=== PATIENT | female | born 1990 | race Caucasian/White ===

== ENCOUNTER 2021-08-09 14:13 | Emergency (ER) | payer OTHER, MEDICAID, SELFPAY ==
[2021-08-09 15:34] VITALS: BP 107/68; PULSE 78; RESP 14; TEMP 36.5; O2SAT 98; BMI 21.4
--- NOTE | 2021-08-09 15:47 | W.ED.DENTAL ---
HPI - Dental/Oral General: Chief complaint: Dental/Oral Stated complaint: broke tooth - would like antibiotics/pain control Time Seen by Provider: 08/09/21 15:39 Source: patient Mode of arrival: ambulatory Limitations: no limitations History of Present Illness: HPI Narrative: Patient is a 31-year-old female who presents to ED today with a complaint of right upper dental pain. Patient tells me she has had issues with that tooth previously but states she was eating a peanut butter cracker when the tooth broke off and she has been in significant discomfort since. She states she has been treating with tylenol, ibuprofen, aspirin, orajel and even got some type of packing material at [facility] all without much relief. Patient scheduled a dentist appointment for Friday morning. MD Complaint: tooth pain Teeth map: 1. broken tooth Onset (ago): day(s) Duration: constant Severity: severe Relieving factors: nothing Context: history of dental caries Associated symptoms: Reports no associated symptoms; Denies ear or mastoid pain, fever(s) or odynophagia Treatment prior to arrival: topical analgesic and oral analgesic Review of Systems Const: Denies: fever(s), chills or body aches Eyes: Denies: change in vision ENMT: Reports: dental pain; Denies: throat pain, odynophagia, mouth pain, swelling of lips/tongue, oral sores, bleeding gums, ear or mastoid pain, ear discharge or nasal discharge Card: Denies: chest pain Resp: Denies: dyspnea GI: Denies: nausea or vomiting Musc: Denies: neck pain Skin/Breast: Denies: rash Neuro: Denies: headache(s) Physical Exam Const: COMMON NORMALS: no acute distress, average body habitus, patient oriented x3, no limitations, healthy appearing, alert and well nourished GENERAL APPEARANCE: cooperative ORIENTATION/CONSCIOUSNESS: Yes awake, Yes oriented to person, Yes oriented to place and Yes oriented to time HENMT: COMMON NORMALS: normocephalic and atraumatic HEAD & SCALP: normal to inspection, normocephalic and atraumatic FACE & SINUS: normal facial exam TEETH & GINGIVA IMAGES: 1. broken, decayed tooth with some type of packing material placed by patient Neck/C-Spine: COMMON NORMALS: full ROM and no lymphadenopathy GENERAL: No anterior neck swelling and No submandibular swelling Resp: COMMON NORMALS: normal respiratory effort Cardio: COMMON NORMALS: regular rate and regular rhythm RATE: regular rate RHYTHM: regular rhythm Neuro: JOSEPHINE COMA SCALE: document GCS findings Josephine coma scale eye opening: Spontaneous [place] coma scale verbal response: Orientated Josephine coma scale motor response: Obey commands Josephine coma scale total score: 15 COMMON NORMALS: patient oriented x3 and CN's II-XII intact bilaterally SENSORIUM/ORIENTATION: Yes alert, Yes oriented to person, Yes oriented to place and Yes oriented to time Skin: COMMON NORMALS: no rashes or lesions noted GENERAL SKIN EXAM: no rashes or lesions noted TRAUMA: no lacerations or abrasions Course Vital Signs: Vital signs: Vital Signs Temperature 97.7 F 08/09/21 15:34 Pulse Rate 78 08/09/21 15:34 Respiratory Rate 14 08/09/21 15:34 Blood Pressure 107/68 08/09/21 15:34 Pulse Oximetry 98 08/09/21 15:34 Discharge Plan Discharge Patient Disposition: Home Clinical Impression: Dental caries, Toothache Fracture of tooth Qualifiers: Encounter type: initial encounter Fracture type: closed Qualified Code(s): S02.5XXA - Fracture of tooth (traumatic), initial encounter for closed fracture Condition: Stable Prescriptions: New clindamycin HCl 300 mg capsule 300 mg PO Q6H 7 Days Qty: 28 RF: 0 tramadol 50 mg tablet 50 mg PO Q6H PRN (Reason: pain) Qty: 14 RF: 0 Discharge Orders: Discharge ED (Routine); Ordered 08/09/21 Ordered By: Barbara Castro Patient Instructions: Dental Caries (Cavities), Toothache (ED) Coding Level of Care Code ED Relations Specialist for [employer]lallig Fwd Exam Detailed
== END 2021-08-09 16:37 | disposition home or self-care (01) ==
PROVIDERS: Emergency Provider Physician Assistant
DX: S02.5XXA Fracture of tooth (traumatic), initial encounter for closed fracture (principal)
CPT/HCPCS: 99281

== ENCOUNTER 2021-08-25 13:23 | Emergency (ER) | payer OTHER, MEDICAID, SELFPAY ==
[2021-08-25 13:41] VITALS: BP 142/78; PULSE 101; RESP 15; TEMP 36.9; O2SAT 98; BMI 22.4
--- NOTE | 2021-08-25 14:01 | PC.NURSE ---
Pt assisted into gown. Room cleared. Family at bedside.
--- NOTE | 2021-08-25 14:09 | W.ED.ANXIETY ---
HPI - Anxiety General: Chief Complaint: Anxiety Stated Complaint: Nerves, meds not working Time Seen by Provider: 08/25/21 13:42 History of Present Illness: HPI narrative: Patient is a 31-year-old female comes to the ED with anxiety. Patient says she currently is feeling very stressed and anxious right now. She says she has a lot of things on her plate. She is currently patient says she was on buspirone and escitalopram but ran out of medications and her next appointment with her doctor at [facility] is on October 01. Provider said she was not going to refill her prescriptions until she saw patient in clinic and stated that she is probably going to switch some of her medications at that time since they have not been working. Since being off medication her symptoms of anxiety have increased. She denies any SI, HI, auditory or visual hallucinations. Associated symptoms: Deny chest pain, chills, fever(s), headache(s), nausea, palpitations or vomiting Review of Systems Const: Denies: fever(s), chills or fatigue Eyes: Denies: change in vision or eye discomfort ENMT: Denies: throat pain, odynophagia, nasal discharge or nasal congestion Card: Denies: chest pain, palpitations, edema, swelling of feet/ankles, dyspnea on exertion or orthopnea Resp: Denies: dyspnea, productive cough or non-productive cough GI: Denies: abdominal pain, nausea, vomiting, diarrhea, constipation or hematochezia : Denies: flank pain, dysuria or hematuria Musc: Denies: neck pain, back pain or extremity swelling Skin/Breast: Denies: rash or new lesions Neuro: Denies: headache(s), numbness in extremities or weakness in extremities Psych: Reports: anxiety; Denies: visual hallucinations, auditory hallucinations, suicidal ideation or homicidal ideation Physical Exam Const: COMMON NORMALS: patient oriented x3 and alert GENERAL APPEARANCE: anxious OTHER: Patient was occurring during history and physical exam. HENMT: COMMON NORMALS: normocephalic HEAD & SCALP: normocephalic MOUTH: Normal oral and palatal mucosa present THROAT: posterior oropharynx normal and uvula midline Neck/C-Spine: COMMON NORMALS: supple GENERAL: Yes normal visual inspection Resp: COMMON NORMALS: normal respiratory effort, No retractions, No use of accessory muscles and clear to auscultation bilaterally AUSCULTATION: clear to auscultation bilaterally Cardio: COMMON NORMALS: regular rate, regular rhythm, S1 normal heart sound present, S2 normal heart sound present, No gallops present (Cardio), No clicks present (Cardio), No murmurs present (Cardio) and Peripheral pulses 2+ throughout RATE: regular rate RHYTHM: regular rhythm HEART SOUNDS: S1 normal heart sound present and S2 normal heart sound present PERIPHERAL PULSES: Peripheral pulses 2+ throughout GI: COMMON NORMALS: Normal to inspection, nondistended, normoactive bowel sounds present, Soft to palpation, non-tender and no masses PALPATION: Yes Soft to palpation : COMMON NORMALS: Yes no CVA tenderness BLADDER/KIDNEY EXAM: Yes no CVA tenderness Back/Pelvis: COMMON NORMALS: no CVA tenderness Extremity: COMMON NORMALS: normal to inspection Neuro: COMMON NORMALS: patient oriented x3 and moves all extremities SENSORIUM/ORIENTATION: Yes alert Psych: COMMON NORMALS: mental status grossly normal, Normal thought process present, cooperative, speech normal, activity/motor behavior normal, denies hallucinations, denies homicidal ideation and denies suicidal ideation ATTITUDE: Yes calm ACTIVITY/MOTOR BEHAVIOR: Yes appropriate eye contact SPEECH: Yes normal speech MOOD & AFFECT: Yes anxious and Yes tearful THOUGHT PROCESS: Normal thought process present THOUGHT CONTENT: No Suicidality present, No Homicidality present and No Hallucination(s) present ATTENTION/CONCENTRATION: Yes attention grossly intact and Yes concentration grossly intact MEMORY/COGNITION: Yes memory grossly intact and Yes cognition grossly intact Skin: GENERAL SKIN EXAM: dry skin Course Consultations: Consultation #1: I contacted Dr. Lin and told about patient case. He was up for admitting patient to stress unit to evaluate her medications. I told him about patient refused to be admitted and that he is can have to do a video conference with patient to discuss further care plan. Time: 16:03 Consultation #2: Dr. Lin was good with discharge of pt after he performed video conference with her. He told me to discharge patient home with the following prescriptions?propranol 20 mg TID prn and Prozac 20mg daily. Time: 17:06 Vital Signs: Vital signs: Vital Signs Temperature 98.0 F 08/25/21 17:40 Pulse Rate 73 08/25/21 17:40 Respiratory Rate 16 08/25/21 17:40 Blood Pressure 116/74 08/25/21 17:40 Pulse Oximetry 100 08/25/21 17:40 MDM - Anxiety MDM Narrative: Medical decision making narrative: Patient is a 31-year-old female comes to the ED with acute anxiety. Patient has run out of her medications and does not have an appointment with her behavioral health doctor until October 01. When going through triage patient screened positive for SI. Talking with patient she denies any SI, HI, auditory or visual hallucinations. Patient does not want to be brought into the stress unit and says she feels safe and has having no thoughts of suicide. I contacted Dr. Lin and told outpatient case. He agreed to do a video conference visit with patient and let me know his plan of care for patient. After Dr. Lin talked with patient on video conference he told me he is okay with patient being discharged home. He told me to send patient with a prescription for propranolol 20 mg 3 times daily as needed for anxiety and Prozac 20 mg daily. Patient diagnosed acute anxiety and discharged home with prescriptions for propranolol and Prozac medications. I placed an order with case management for patient to be scheduled with [facility] [place] for further follow-up and medication management. Patient understood and agreed with plan. Discharge Plan Discharge Patient Disposition: Home Clinical Impression: Acute anxiety Condition: Stable Prescriptions: New propranolol 20 mg tablet 20 mg PO TID PRN (Reason: anxiety) Qty: 90 RF: 0 Prozac 20 mg capsule 20 mg PO DAILY Qty: 30 RF: 0 No Action No Known Home Medications RF: 0 Discharge Orders: Discharge ED (Routine); Ordered 08/25/21 Ordered By: Paco Simpson Discharge Diet: Regular Discharge Activity: Resume usual activity Patient Instructions: Anxiety (ED) Activity Restrictions/Additional Instructions: Follow-up with medical provider as directed. Case management will contact you in the next several days to set up an appointment with behavioral health. Take medications as prescribed. Return to the ER or your medical provider if condition worsens. Please read and understand discharge instructions. Thank you for choosing [facility] for your healthcare needs today. Please realize this is an emergency room and that we are providing you with a medical screening exam and this may not be complete and all inclusive of all the testing and or work up that you may need to determine your ailment or severity of your illness. It is very important that you follow up as instructed or that you return to the Emergency Department should you have concerns or if your condition changes or worsens in any way. Coding Level of Care Code ED Ict Project Manager for Chg Fwd Exam Comprehensive
[2021-08-25] MEDS: LORazepam 1 mg Tablet PO (14:32)
[2021-08-25 17:40] VITALS: BP 116/74; PULSE 73; RESP 16; TEMP 36.7; O2SAT 100
--- NOTE | 2021-08-27 12:39 | DCPLANNER ---
-service manager had message to speak with patient about services at [facility]. service manager called phone number [phone], unable to speak with patient at this time a voicemail was left for patient to return employment evaluator/case manager phone call.
== END 2021-08-25 17:42 | disposition home or self-care (01) ==
PROVIDERS: Emergency Provider Physician Assistant
DX: F41.9 Anxiety disorder, unspecified (principal)
CPT/HCPCS: 99283

== ENCOUNTER 2021-10-19 16:06 | Emergency (ER) | payer OTHER, MEDICAID, SELFPAY ==
[2021-10-19 16:22] VITALS: BP 109/60; PULSE 83; RESP 16; TEMP 36.8; O2SAT 97; BMI 20.2
--- NOTE | 2021-10-19 16:42 | XRR_ITS ---
PROCEDURE INFORMATION: Exam: XR Right Shoulder Exam date and time: 10/19/2021 4:42 PM Age: 31 years old Clinical indication: Pain; Shoulder; Right; Additional info: Right shoulder pain into neck, no injury, no trauma TECHNIQUE: Imaging protocol: XR Right shoulder. Views: 2 or more views. COMPARISON: No relevant prior studies available. FINDINGS: Bones/joints: There is no acute fracture or dislocation. The acromioclavicular joint alignment is appropriate. The subacromial joint space is well-preserved. The glenohumeral joint is unremarkable. No calcific tendinopathy. The visualized ribs are intact. Lungs: Mild ground-glass opacity is noted in the right lung base that may reflect mild pneumonitis versus atelectasis. Soft tissues: Normal. XR/XR shoulder RT min 2V* [id number] IMPRESSION: 1. No acute bony abnormality. 2. Mild ground-glass opacity in the right lung base may reflect mild pneumonitis versus atelectasis.
[2021-10-19 16:44] VITALS: BP 103/67; PULSE 77; RESP 16; O2SAT 96
--- NOTE | 2021-10-19 16:46 | ED_ITS ---
HPI - Extremity Problem General: Chief complaint: Extremity Problem,Nontraumatic Stated complaint: Neck pain not feeling Time Seen by Provider: 10/19/21 16:43 PFSH ED PFSH: Medical History (Updated 09/02/21 @ 00:01 by ) Psychiatric care Course Vital Signs: Vital signs: Vital Signs Temperature 98.2 F 10/19/21 16:22 Pulse Rate 83 10/19/21 16:22 Respiratory Rate 16 10/19/21 16:22 Blood Pressure 109/60 10/19/21 16:22 Pulse Oximetry 97 10/19/21 16:22 Discharge Plan Discharge Prescriptions: No Action No Known Home Medications RF: 0 propranolol 20 mg tablet 20 mg PO TID PRN (Reason: anxiety) Qty: 90 RF: 0 Prozac 20 mg capsule 20 mg PO DAILY Qty: 30 RF: 0 Coding Level of Care Code ED Associate Professor Of Music for Daniel Jimenez
--- NOTE | 2021-10-19 17:13 | W.ED.EXTPRO ---
HPI - Extremity Problem General: Chief complaint: Extremity Problem,Nontraumatic Stated complaint: Neck pain not feeling Time Seen by Provider: 10/19/21 16:43 Source: patient Mode of arrival: ambulatory Limitations: no limitations History of Present Illness: HPI Narrative: Patient is a 31-year-old female presents to ED today with a complaint of right-sided neck pain with radiation into the back of her right shoulder. She denies any acute injury or trauma. She states pain seems to be worse with movement of her neck and movement of her right upper extremity. She has noticed some intermittent burning to the right arm. She has not noticed any weakness or decreased tapping machine operator automatic strength. She is not having any midline cervical tenderness. MD Complaint: extremity pain Onset (ago): day(s) Pain Consistency: intermittent Location: right, upper extremity and other (neck) Quality: burning Radiation: distal Relieving factors: movement Exacerbating factors: nothing Associated symptoms: Reports no associated symptoms; Deny chest pain, fever(s) or rash Review of Systems Const: Denies: fever(s), chills, body aches, fatigue or malaise Eyes: Denies: change in vision ENMT: Denies: throat pain or odynophagia Card: Denies: chest pain, edema, swelling of feet/ankles, lightheadedness, syncope, pre-syncope, dyspnea on exertion or orthopnea Resp: Denies: dyspnea GI: Denies: abdominal pain Musc: Reports: neck pain and joint pain; Denies: back pain, extremity swelling, joint swelling, joint redness, joint warmth or limited range of motion Skin/Breast: Denies: rash Neuro: Reports: sensory changes (R UE); Denies: headache(s), numbness in extremities, weakness in extremities or difficulty walking [facility] ED PFSH: Medical History (Updated 10/19/21 @ 17:15 by VADIM Stokes) Psychiatric care Physical Exam Const: COMMON NORMALS: no acute distress, average body habitus, patient oriented x3, no limitations, healthy appearing, alert and well nourished HENMT: COMMON NORMALS: normocephalic and atraumatic HEAD & SCALP: normal to inspection, normocephalic and atraumatic Neck/C-Spine: COMMON NORMALS: full ROM, no lymphadenopathy and no meningeal signs CERVICAL SPINE: Yes cervical ROM normal, No Cervical spine tenderness, No step off deformity and Yes Paracervical muscle tenderness right Chest: COMMONS NORMALS: normal inspection of the chest and normal palpation of entire chest wall Resp: COMMON NORMALS: normal respiratory effort and clear to auscultation bilaterally AUSCULTATION: clear to auscultation bilaterally Back/Pelvis: COMMON NORMALS: thoracic and lumbar spine normal to inspection, no thoracic nor lumbar tenderness and thoraco-lumbar ROM normal Extremity: RIGHT UPPER EXTREMITY: Yes shoulder joint Right shoulder: Yes Right shoulder joint neurovascular exam (normal) and Yes Right shoulder joint other findings (TTP posterior shoulder musculature ) Neuro: COMMON NORMALS: patient oriented x3, moves all extremities, no focal motor deficits and no sensory deficits noted SENSORIUM/ORIENTATION: Yes alert MENINGEAL SIGNS: Yes no meningeal signs MOTOR EXAM: 5/5 motor strength present throughout Skin: COMMON NORMALS: no rashes or lesions noted GENERAL SKIN EXAM: no rashes or lesions noted Course Vital Signs: Vital signs: Vital Signs Temperature 98.2 F 10/19/21 16:22 Pulse Rate 77 10/19/21 16:44 Respiratory Rate 16 10/19/21 16:44 Blood Pressure 103/67 10/19/21 16:44 Pulse Oximetry 96 10/19/21 16:44 MDM - Extremity (Nontraumatic) MDM Narrative: Medical decision making narrative: DDx: cervical radiculopathy, right cervical musculature strain, rotator cuff tendinopathy, trapezius muscle strain. Will treat with NSAIDS, steroids, muscle relaxers and recommend PCP follow up in a week or so if symptoms persist. Return to ED precautions given verbally to patient. Discharge Plan Discharge Patient Disposition: Home Clinical Impression: Right cervical radiculopathy Condition: Stable Prescriptions: New cyclobenzaprine 10 mg tablet 10 mg PO TID Qty: 14 RF: 0 Medrol (Reji) 4 mg tablets,dose pack See Rx Instructions .ROUTE .COMPLEX Qty: 21 RF: 0 naproxen 500 mg tablet 500 mg PO BID PRN (Reason: pain) Qty: 20 RF: 0 No Action propranolol 20 mg tablet 20 mg PO TID PRN (Reason: anxiety) Qty: 90 RF: 0 Prozac 20 mg capsule 20 mg PO DAILY Qty: 30 RF: 0 Discharge Orders: Discharge ED (Routine); Ordered 10/19/21 Ordered By: Barbara Castro Patient Instructions: Opioid Safety Stand Alone Forms: Work/School Release Coding Level of Care Code ED Roll Up Operator for Daniel Jimenez
== END 2021-10-19 17:31 | disposition home or self-care (01) ==
PROVIDERS: Emergency Provider Physician Assistant
DX: M54.12 Radiculopathy, cervical region (principal)
CPT/HCPCS: 73030; 99282

== ENCOUNTER 2021-10-29 20:50 | Emergency (ER) | payer OTHER, MEDICAID, SELFPAY ==
[2021-10-29 21:00] VITALS: BP 111/74; PULSE 80; RESP 14; TEMP 36.6; O2SAT 98; BMI 20.2
--- NOTE | 2021-10-29 21:58 | W.ED.NECK ---
HPI - Neck Pain/Injury General: Chief Complaint: Neck Pain/Injury Stated Complaint: Neck Pain\Dizzy Time Seen by Provider: 10/29/21 21:57 History of Present Illness: HPI Narrative: 31-year-old female comes in tonight with right trapezius muscle pain and tightness. Patient reports the pain radiates from her neck. Patient reports pain for the last week. Patient was seen 1 week ago here and started on naproxen and cyclobenzaprine and Medrol Dosepak and reports minimal relief with the use of naproxen. Patient appears well. Patient appears no acute distress. Patient reports activity a little over a week ago during sexual intercourse and has had pain in the neck since then. Patient denies any falls or other injuries. Review of Systems Musc: Reports: neck pain PFS ED PFSH: Medical History (Updated 10/29/21 @ 22:26 by TAO Zuniga) Psychiatric care Physical Exam Const: COMMON NORMALS: no limitations GENERAL APPEARANCE: cooperative and well kempt HENMT: COMMON NORMALS: atraumatic HEAD & SCALP: atraumatic Neck/C-Spine: CERVICAL SPINE: Yes pain with cervical ROM with rotation to the right and Yes Trapezius muscle tenderness Resp: COMMON NORMALS: normal respiratory effort Cardio: COMMON NORMALS: regular rate and regular rhythm RATE: regular rate RHYTHM: regular rhythm GI: AUSCULTATION: Yes normoactive bowel sounds Extremity: COMMON NORMALS: normal to inspection Neuro: SENSORY EXAM: Yes extremities (Normal sensation upper extremities) MOTOR EXAM: 5/5 motor strength present throughout Psych: APPEARANCE: Yes well kempt Skin: COMMON NORMALS: no rashes or lesions noted GENERAL SKIN EXAM: no rashes or lesions noted Course Vital Signs: Vital signs: Vital Signs Temperature 97.9 F 10/29/21 21:00 Pulse Rate 80 10/29/21 21:00 Respiratory Rate 14 10/29/21 21:00 Blood Pressure 111/74 10/29/21 21:00 Pulse Oximetry 98 10/29/21 21:00 MDM - Neck Pain/Injury MDM Narrative: Medical decision making narrative: 31-year-old female comes in today with complaints of right side cervical and trapezius muscle discomfort. On exam patient has no cervical spine tenderness on palpation. Patient does have tenderness in the right trapezius muscle with muscle spasm. Range of motion of the shoulders normal elicits some pain. Rotation of the neck to the right elicits pain. Skin is warm and dry. Vital signs are normal. Differential diagnosis includes muscle strain, intervertebral disc disease, facet arthropathy, tendinitis. We will keep patient on some diclofenac 75 mg twice a day for the next 7 days. Patient be given a short course of hydrocodone to assist with pain control. Encourage patient to drink plenty of water and do gentle range of motion exercises. Recommend follow-up with primary care for further evaluation and treatment with possible referral to physical therapy. Patient reported understanding and agreed to plan. Review of the record indicated no recent narcotic prescriptions. Discharge Plan Discharge Patient Disposition: Home Clinical Impression: Strain of neck muscle Qualifiers: Encounter type: initial encounter Qualified Code(s): S16.1XXA - Strain of muscle, fascia and tendon at neck level, initial encounter Condition: Stable Prescriptions: New diclofenac sodium 75 mg tablet,delayed release (DR/EC) 75 mg PO BID Qty: 14 RF: 0 hydrocodone-acetaminophen 5-325 mg tablet 1 tab PO Q8H PRN (Reason: pain (scale score 7-10)) Qty: 7 RF: 0 Discontinued cyclobenzaprine 10 mg tablet 10 mg PO TID Qty: 14 RF: 0 methylprednisolone [Medrol (Reji)] 4 mg tablets,dose pack See Rx Instructions .ROUTE .COMPLEX Qty: 21 RF: 0 naproxen 500 mg tablet 500 mg PO BID PRN (Reason: pain) Qty: 20 RF: 0 No Action propranolol 20 mg tablet 20 mg PO TID PRN (Reason: anxiety) Qty: 90 RF: 0 Prozac 20 mg capsule 20 mg PO DAILY Qty: 30 RF: 0 Discharge Orders: Discharge ED (Routine); Ordered 10/29/21 Ordered By: Norm Hopper Discharge Diet: Usual diet Discharge Activity: Increase activity as tolerated Patient Instructions: Neck Pain (ED), Opioid Safety Activity Restrictions/Additional Instructions: Activity as tolerated. Gentle stretching and range of motion exercises of the neck. Drink plenty of water with medication. Follow-up with primary care for further instruction. Return to the ER for new concerns. Coding Level of Care Code ED Tumbler Tender for Daniel Jimenez
[2021-10-29] MEDS: orphenadrine 30 mg/mL Inj 2 mL 60 MG IM (22:34)
[2021-10-29] MEDS: HYDROcodone-acetaminophen 5-325 mg Tablet 1 TAB PO (22:34)
[2021-10-29] MEDS: ketorolac 30 mg/mL INJ IM (22:34)
[2021-10-29 22:50] VITALS: RESP 16
== END 2021-10-29 22:51 | disposition home or self-care (01) ==
PROVIDERS: Emergency Provider Nurse Practitioner Family
DX: S16.1XXA Strain of muscle, fascia and tendon at neck level, initial encounter (principal); X58.XXXA Exposure to other specified factors, initial encounter
CPT/HCPCS: 96372; 99283; J1885; J2360

== ENCOUNTER 2021-11-12 00:44 | Emergency (ER) | payer OTHER, MEDICAID, SELFPAY ==
--- NOTE | 2021-11-12 00:49 | XRR_ITS ---
PROCEDURE INFORMATION: Exam: XR Chest Exam date and time: 11/12/2021 12:49 AM Age: 31 years old Clinical indication: Pain; On breathing; Additional info: Cp TECHNIQUE: Imaging protocol: XR of the chest. Views: 1 view. COMPARISON: CR (CHEST, ) 10/19/2021 4:50 PM FINDINGS: Lungs: Unremarkable. No consolidation. Pleural spaces: Unremarkable. No pleural effusion. No pneumothorax. Heart/Mediastinum: Unremarkable. No cardiomegaly. Bones/joints: Unremarkable. Soft tissues: 1.3 cm nodule versus nipple shadow overlies the lower right lung at the level of posterior right 9th rib. XR/XR chest 1V portable [id number] IMPRESSION: 1. No acute cardiopulmonary process. 2. Nodule versus right external nipple shadow lower right chest. Consider follow-up two-view chest with nipple markers for delineation.
[2021-11-12 00:59] VITALS: BP 106/70; PULSE 89; RESP 18; TEMP 36.4; O2SAT 99; BMI 20.2
--- NOTE | 2021-11-12 01:36 | ED_ITS ---
HPI - Chest Pain General: Chief Complaint: Chest Pain Stated Complaint: CP Time Seen by Provider: 11/12/21 00:50 Source: patient Mode of arrival: ambulatory Limitations: no limitations History of Present Illness: 31-year-old female states she has a long history of anxiety states that her PCP took her off her Prozac 2 to 3 weeks ago and she has been having increasing anxiety since then she states that she had an anxiety attack tonight and was having chest pain roughly at 6 PM. States she feels improved but still having the pain and anxiety denies any shortness of breath denies any worsening improving factors. Associated symptoms: Deny abdominal pain, dyspnea, fever(s), nausea or vomiting Review of Systems Const: Denies: fever(s), chills, body aches or change in appetite Eyes: Denies: blurry vision or eye discomfort ENMT: Denies: throat pain or dental pain Card: Reports: chest pain Resp: Denies: dyspnea GI: Denies: abdominal pain, nausea, vomiting or diarrhea : Denies: dysuria Musc: Denies: neck pain or back pain Skin/Breast: Denies: rash Neuro: Denies: headache(s) Psych: Reports: anxiety [place]/Lymph: Denies: easy bruising All/Imm: Denies: urticaria PFSH ED PFSH: Medical History Anxiety Psychiatric care Family History (Updated 11/12/21 @ 01:37 by Umu Sosa MD) Denies family history of Cancer Physical Exam Const: COMMON NORMALS: no acute distress, patient oriented x3 and healthy appearing HENMT: COMMON NORMALS: normocephalic and atraumatic HEAD & SCALP: normocephalic and atraumatic Eye: COMMON NORMALS: Equal, round and reactive pupils present and EOMs intact bilaterally PUPIL: Yes Equal, round and reactive pupils present Neck/C-Spine: COMMON NORMALS: full ROM and supple Chest: COMMONS NORMALS: normal inspection of the chest and normal palpation of entire chest wall Resp: COMMON NORMALS: normal respiratory effort, No retractions, No use of accessory muscles and clear to auscultation bilaterally AUSCULTATION: clear to auscultation bilaterally Cardio: COMMON NORMALS: regular rate, regular rhythm and No murmurs present (Cardio) RATE: regular rate RHYTHM: regular rhythm GI: COMMON NORMALS: Normal to inspection, nondistended, normoactive bowel sounds present, Soft to palpation, non-tender and no masses PALPATION: Yes Soft to palpation Extremity: COMMON NORMALS: normal to inspection and full ROM Neuro: COMMON NORMALS: patient oriented x3, moves all extremities and no focal motor deficits Psych: COMMON NORMALS: mental status grossly normal, Normal thought process present and cooperative MOOD & AFFECT: Yes anxious THOUGHT PROCESS: Normal thought process present Skin: COMMON NORMALS: no rashes or lesions noted and no wounds GENERAL SKIN EXAM: no rashes or lesions noted Course Vital Signs: Vital signs: Vital Signs Temperature 97.6 F 11/12/21 00:59 Pulse Rate 87 11/12/21 01:51 Respiratory Rate 18 11/12/21 01:51 Blood Pressure 100/64 11/12/21 01:51 Pulse Oximetry 98 11/12/21 01:51 MDM - Chest Pain Medical Decision Making Patient presents for chest pain likely due to anxiety patient's troponin EKG and x-ray are all normal heel she feels much improved after Ativan will refill her Prozac and propanolol she is stable for discharge is to follow-up with PCP and return if worsening. Lab Data : 11/12/21 01:49 11/12/21 01:49 Laboratory Results WBC 6.7 10^3/uL (4.0-10.0) 11/12/21 01:49 RBC 4.69 10^6/uL (4.1-5.3) 11/12/21 01:49 Hgb 13.8 g/dL (11.5-15.3) 11/12/21 01:49 Hct 41.2 % (37.0-47.0) 11/12/21 01:49 MCV 87.8 fl (81-99) 11/12/21 01:49 MCH 29.4 pg (28.0-34.0) 11/12/21 01:49 MCHC 33.5 g/dL (30.0-36.0) 11/12/21 01:49 RDW 12.0 % (12.1-15.1) L 11/12/21 01:49 Plt Count 182 10^3/cmm (130-400) 11/12/21 01:49 MPV 10.9 fL (7.4-10.4) H 11/12/21 01:49 Neut % (Auto) 50.1 % 11/12/21 01:49 Lymph % (Auto) 39.9 % 11/12/21 01:49 [place] % (Auto) 6.4 % 11/12/21 01:49 Eos % (Auto) 3.0 % 11/12/21 01:49 Baso % (Auto) 0.3 % 11/12/21 01:49 Neut # (Auto) 3.37 10^3/uL (1.8-7.7) 11/12/21 01:49 Lymph # (Auto) 2.7 10^3/uL (0.8-4.8) 11/12/21 01:49 [place] # (Auto) 0.4 10^3/uL (0.2-0.9) 11/12/21 01:49 Eos # (Auto) 0.2 10^3/uL (0.0-0.8) 11/12/21 01:49 Baso # (Auto) 0.0 10^3/uL (0.0-0.1) 11/12/21 01:49 Nucleated RBC % (auto) 0 % 11/12/21 01:49 Nucleated RBCs # 0.0 /100WBC 11/12/21 01:49 Sodium 141 mmol/L (136-145) 11/12/21 01:49 Potassium 3.5 mmol/L (3.5-5.1) 11/12/21 01:49 Chloride 105 mmol/L (98-107) 11/12/21 01:49 Carbon Dioxide 23 mmol/L (22-29) 11/12/21 01:49 Anion Gap 16.5 (5-19) 11/12/21 01:49 BUN 9 mg/dL (6-20) 11/12/21 01:49 Glucose 112 mg/dL (65-115) 11/12/21 01:49 Calculated Osmolality 291 mOsm/kg (285-295) 11/12/21 01:49 Calcium 9.0 mg/dL (8.5-10.5) 11/12/21 01:49 Total Bilirubin 0.3 mg/dL (0.15-1.2) 11/12/21 01:49 AST 12 U/L (0-32) 11/12/21 01:49 ALT 23 U/L (0-33) 11/12/21 01:49 Alkaline Phosphatase 52 IU/L (35-105) 11/12/21 01:49 Troponin T Baseline 6 ng/L (0-10) 11/12/21 01:49 Albumin 4.3 g/dL (3.5-5.2) 11/12/21 01:49 Globulin 2.0 g/dL (1.3-4.6) 11/12/21 01:49 Imaging Data CXR: I personally reviewed and interpreted this imaging study as follows: My impression: No acute abnormality EKG Data EKG 1: I personally reviewed and interpreted this EKG as follows: EKG interpretation date: 11/12/21 EKG interpretation time: 00:56 Interpretation: nsr hr [address] or t wave abnormalities qrs 108 qtc 401 Discharge Plan Discharge Patient Disposition: Home Clinical Impression: Chest pain, Anxiety Condition: Stable Prescriptions: Continued propranolol 20 mg tablet 20 mg PO TID PRN (Reason: anxiety) Qty: 90 0RF Prozac 20 mg capsule 20 mg PO DAILY Qty: 30 0RF No Action diclofenac sodium 75 mg tablet,delayed release (DR/EC) 75 mg PO BID Qty: 14 0RF hydrocodone-acetaminophen 5-325 mg tablet 1 tab PO Q8H PRN (Reason: pain (scale score 7-10)) Qty: 7 0RF Discharge Orders: Discharge ED (Routine); Ordered 11/12/21 Ordered By: Umu Sosa Discharge Diet: Advance as tolerated Discharge Activity: Resume usual activity Patient Instructions: Chest Pain (ED), Anxiety (ED) Coding Level of Care Code ED Rn Lab for Chg Fwd Exam Comprehensive
[2021-11-12] MEDS: LORazepam 2 mg/mL INJ 1 mL IVP (01:46)
[2021-11-12 01:51] VITALS: BP 100/64; PULSE 87; RESP 18; O2SAT 98
[2021-11-12 01:55] LABS: Basophils % 0.3 %; Eosinophils # 0.2 10^3/uL (0.0-0.8); Hematocrit 41.2 % (37.0-47.0); Hemoglobin 13.8 g/dL (11.5-15.3); Lymphocytes # 2.7 10^3/uL (0.8-4.8); Lymphocytes % 39.9 %; Mean Corpuscular HGB Conc 33.5 g/dL (30.0-36.0); Mean Corpuscular Hemoglobin 29.4 pg (28.0-34.0); Mean Corpuscular Volume 87.8 fl (81-99); Mean Platelet Volume 10.9 fL (7.4-10.4); Monocytes # 0.4 10^3/uL (0.2-0.9); Monocytes % 6.4 %; Neutrophils # 3.37 10^3/uL (1.8-7.7); Neutrophils % 50.1 %; Nucleated Red Blood Cells % 0 %; Platelet Count 182 10^3/cmm (130-400); Red Blood Count 4.69 10^6/uL (4.1-5.3); White Blood Count 6.7 10^3/uL (4.0-10.0)
[2021-11-12 02:23] LABS: Troponin(5th) Baseline 6 ng/L (0-10)
[2021-11-12 02:27] LABS: Alanine Aminotransferase 23 U/L (0-33); Albumin Level 4.3 g/dL (3.5-5.2); Alkaline Phosphatase 52 IU/L (35-105); Anion Gap 16.5 (5-19); Aspartate Amino Transferase 12 U/L (0-32); Blood Urea Nitrogen 9 mg/dL (6-20); Carbon Dioxide 23 mmol/L (22-29); Chloride 105 mmol/L (98-107); Creatinine Clr Calc Pharmacy 151.8789; Glomerular Filtration Rate 183.8 mL/min (90-130); Glucose 112 mg/dL (65-115); Osmolality Calculated 291 mOsm/kg (285-295); Potassium 3.5 mmol/L (3.5-5.1); Sodium 141 mmol/L (136-145); Total Bilirubin 0.3 mg/dL (0.15-1.2); Total Protein 6.3 g/dL (6.6-8.7)
[2021-11-12 02:48] VITALS: BP 103/87; PULSE 74; RESP 18; O2SAT 97
== END 2021-11-12 02:49 | disposition home or self-care (01) ==
PROVIDERS: Emergency Provider Emergency Medicine
DX: R07.9 Chest pain, unspecified (principal); F41.9 Anxiety disorder, unspecified
CPT/HCPCS: 71045; 80053; 84484; 85025; 96374; 99284; J2060